=== PATIENT | female | born 1985 | race Caucasian/White ===

== ENCOUNTER → 2022-06-01 18:42 | Outpatient (BNVA) | payer MEDICAID, SELFPAY | PROVIDERS: Visit Provider Registered Nurse Neonatal Intensive Care | DX: R50.9 Fever, unspecified (principal) | CPT/HCPCS: 87400 ==

== ENCOUNTER → 2022-07-12 19:22 | Outpatient (BNVA) | payer MEDICAID, SELFPAY | PROVIDERS: Visit Provider Registered Nurse Neonatal Intensive Care | DX: J02.9 Acute pharyngitis, unspecified (principal) | CPT/HCPCS: 87071; 87880 ==

== ENCOUNTER 2022-10-26 19:13 | Outpatient (CLI) | payer MEDICAID, SELFPAY ==
--- NOTE | 2022-10-26 | XRR_ITS ---
PROCEDURE INFORMATION: Exam: XR Nasal Bones Exam date and time: 10/26/2022 7:53 PM Age: 36 years old Clinical indication: Injury or trauma; Blunt trauma (contusions or hematomas); Nose; Injury date: 10/26/22; Patient HX: Facial trauma; Black eye; Swelling; Additional info: Localized swelling, mass, lump head TECHNIQUE: Imaging protocol: XR of the nasal bones. Views: Minimum of 3 views; Frontal and Lateral COMPARISON: No relevant prior studies available. FINDINGS: Sinuses: The visualized adjacent paranasal sinuses are clear. Bones/joints: There are no nasal bone fractures noted. Minimal rightward curvature of the osseous nasal septum. Soft tissues: Unremarkable. Notes: If there is further concern, recommend facial CT for complete assessment. XR/XR nasal bones min 3V [id number] IMPRESSION: No nasal bone fractures.
--- NOTE | 2022-10-26 | XRR_ITS ---
PROCEDURE INFORMATION: Exam: XR Orbits Exam date and time: 10/26/2022 8:04 PM Age: 36 years old Clinical indication: Injury or trauma; Blunt trauma (contusions or hematomas); Nose; Injury date: 10/26/22; Patient HX: Facial trauma; Black eye; Swelling TECHNIQUE: Imaging protocol: XR of the orbits. Views: Minimum of 4 views COMPARISON: CR XR nasal bones min 3V [id number] 10/26/2022 7:53 PM FINDINGS: Sinuses: Well aerated. No opacification. Minimal rightward deviation of the midline osseous nasal septum peer Bones/joints: No fractures seen. The medial, lateral, superior and inferior orbital nguyen are intact. The zygomatic regions appear unremarkable. Soft tissues: The visualized mastoid regions appear unremarkable. There is no radiographic soft tissue swelling seen. No radiopaque foreign body seen. XR/[place] [id number] IMPRESSION: Unremarkable orbits radiographs.
== END 2022-10-26 19:14 | disposition home or self-care (01) ==
PROVIDERS: Visit Provider Nurse Practitioner Family
DX: R22.0 Localized swelling, mass and lump, head (principal); S00.10XA Contusion of unspecified eyelid and periocular area, initial encounter; X58.XXXA Exposure to other specified factors, initial encounter
CPT/HCPCS: 70160; 70200